=== PATIENT | female | born 1965 | race Caucasian/White ===

== ENCOUNTER 2016-11-28 15:31 | Emergency (ER) | payer MEDICARE, MEDICAID ==
[2016-11-28 15:36] VITALS: BP 114/67
[2016-11-28] MEDS ORDERED: predniSONE TAB* 20 MG PO ONE (17:05)
--- NOTE | 2016-11-28 18:53 | ED ---
Uzair Mclean Thomas, scribed for Edin Collado MD on 11/28/16 at 1704 . Skin Complaint - HPI Summary HPI Summary: The pt is a 51 y/o F presenting to the ED c/o poison bev rashes on her L ankle and inner R thigh that began 5 days ago. The rashes have not improved even after use of OTC ointments. She went to her PCP two days ago and the rash has not improved since then. The pain is described as a burning. The pain is rated 7 /10. The rash is aggravated by nothing. The rash is not alleviated by soap and water, rubbing alcohol, calamine lotion, or triamcinolone acetonide cream. Pt additionally c/o drainage from the rashes. Pt denies fever. PMHx: Ankit-Cheek, heart murmur, peritonitis. PSHx: appendectomy. SHx: no smoking, no illicit drugs , no alcohol use. - History of Current Complaint Chief Complaint: EDRashSkinAbscess Time Seen by Provider: 11/28/16 16:55 Stated Complaint: POISON BEV COMPLICATIONS Hx Obtained From: Patient Onset/Duration: Started Days Ago - 5 days ago, Still Present Timing: Constant Current Severity: Moderate Pain Intensity: 7 Pain Scale Used: 0-10 Numeric Skin Location: Other: - L ankle, R inner thigh Aggravating Symptom(s): Nothing Alleviating Symptom(s): Nothing, Other: - NOT alleviated by soap and water, rubbing alcohol, calamine lotion, or triamcinolone acetonide cream Related History: Other: - S/p poison bev exposure - Allergy/Home Medications Allergies/Adverse Reactions: Allergies Allergy/AdvReac Type Severity Reaction Status Date / Time Amoxicillin [From Augmentin] Allergy Mild Unknown Verified 11/28/16 17:03 Reaction Details Clavulanic Acid Allergy Mild Unknown Verified 11/28/16 17:03 [From Augmentin] Reaction Details PMH/Surg Hx/FS Hx/Imm Hx Previously Healthy: No - Ankit Cheek virus Cardiovascular History: Reports: Other Cardiovascular Problems/Disorders - Hx Heart Murmur Denies: Hx Pacemaker/ICD GI History: Reports: Other GI Disorders - Hx peritonitis Sensory History: Denies: Hx Hearing Aid Psychiatric History: Denies: Hx Panic Disorder - Surgical History Surgery Procedure, Year, and Place: APPENDECTOMY, BLADDER HYDRO EXTENSION Infectious Disease History: Denies: Traveled Outside the [place] in Last 30 Days - Family History Known Family History: Positive: Hypertension - Social History Alcohol Use: None Hx Substance Use: No Substance Use Type: Reports: None Hx Tobacco Use: No Smoking Status (MU): Never Smoked Tobacco Review of Systems Constitutional: Negative Negative: Fever Positive: Rash - with drainage, to L inner thigh and R ankle, NOT alleviated by soap and water, rubbing alcohol, calamine lotion, or triamcinolone acetonide cream All Other Systems Reviewed And Are Negative: Yes Physical Exam - Summary Physical Exam Summary: VITAL SIGNS: Reviewed. GENERAL: ~Patient is a well-developed and nourished female who is lying comfortable in the stretcher. ~Patient is not in any acute respiratory distress. HEAD AND FACE: No signs of trauma. ~No ecchymosis, hematomas or skull depressions. No sinus tenderness. EYES: PERRLA, EOMI x 2, No injected conjunctiva, no nystagmus. EARS: Hearing grossly intact. Ear canals and tympanic membranes are within normal limits. MOUTH: Oropharynx within normal limits. NECK: Supple, trachea is midline, no adenopathy, no JVD, no carotid bruit, no c- spine tenderness, neck with full ROM. CHEST: Symmetric, no tenderness at palpation LUNGS: Clear to auscultation bilaterally. No wheezing or crackles. CVS: Regular rate and rhythm, S1 and S2 present, no murmurs or gallops appreciated. ABDOMEN: Soft, non-tender. No signs of distention. No rebound no guarding, and no masses palpated. Bowel sounds are normal. EXTREMITIES: FROM in all major joints, no edema, no cyanosis or clubbing. NEURO: Alert and oriented x 3. No acute neurological deficits. Speech is normal and follows commands. SKIN: There are erythematous areas with yellowish discharge on the L ankle and R inner thigh. Otherwise, her skin is dry and warm Triage Information Reviewed: Yes Vital Signs On Initial Exam: Initial Vitals Temp Pulse Resp BP Pulse Ox 98.5 F 80 16 114/67 100 11/28/16 15:34 11/28/16 15:34 11/28/16 15:34 11/28/16 15:34 11/28/16 15:34 Vital Signs Reviewed: Yes Diagnostics - Vital Signs Vital Signs Temp Pulse Resp BP Pulse Ox 11/28/16 15:34 98.5 F 80 16 114/67 100 - Laboratory Lab Statement: Any lab studies that have been ordered have been reviewed, and results considered in the medical decision making process. Course/Dx - Course Assessment/Plan: The pt is a 51 y/o F presenting to the ED c/o poison bev rashes on her L ankle and inner R thigh that began 5 days ago. The rashes have not improved even after use of OTC ointments. She went to her PCP two days ago and the rash has not improved since then. The pain is described as a burning. The pain is rated 7/10. The rash is aggravated by nothing. The rash is not alleviated by soap and water, rubbing alcohol, calamine lotion, or triamcinolone acetonide cream. Pt additionally c/o drainage from the rashes. Pt denies fever. PMHx: Ankit-Cheek, heart murmur, peritonitis. PSHx: appendectomy. SHx: no smoking, no illicit drugs, no alcohol use. It seems that the patient is dealing with poison bev. She reports that her rash is getting worse although I think that she is dealing with just the normal course. Therefore, the patient will be give prednisone. She was instructed to return to [facility] if she develops any fevers, chills, or her symptoms are getting worse. She understands and agrees. I discussed all the findings and test results with the patient. Patient was instructed to return to the emergency room immediately if any of the symptoms return or worsens. Plan of care was discussed with the patient and understands and agrees. All questions were answered at patient satisfaction. There were no further complaints or concerns. - Diagnoses Provider Diagnoses: Poison bev Discharge - Discharge Plan Condition: Stable Disposition: HOME Prescriptions: predniSONE TAB* [Deltasone TAB*] 60 mg PO DAILY #15 tab Patient Education Materials: Poison Bev (ED) Referrals: Alexander Chatterjee MD [Primary Care Provider] - The documentation as recorded by the Uzair adam Thomas accurately reflects the service I personally performed and the decisions made by me, Edin Collado MD.
== END 2016-11-28 17:32 | disposition home or self-care (01) ==
LOC: ED 15:31
DX: L23.7 Allergic contact dermatitis due to plants, except food (principal); R21 Rash and other nonspecific skin eruption
CPT/HCPCS: 99282; J7512